=== PATIENT | female | born 1945 | race Caucasian/White ===

== ENCOUNTER 2021-06-26 07:30 | Inpatient (IN) | payer BC ==
[2021-06-26 08:43] LABS: BASO % 0.2 % (0-2.0); HEMATOCRIT 38.3 % (32.4-45.2); LYMPH % 37.5 % (8-40); MCH 27.6 pg (25.7-33.7); MCHC 33.8 g/dl (32.0-36.0); MEAN CELL VOLUME 81.8 fl (80-96); MEAN PLT VOLUME 7.8 fl (7.5-11.1); NEUT % 57.3 % (42.8-82.8); PLATELET COUNT 279 10^3/uL (134-434); RBC 4.69 M/mm3 (3.60-5.2); RDW 14.6 % (11.6-15.6)
[2021-06-26 09:02] LABS: INR 1.23 (0.83-1.09); PROTHROMBIN TIME (PATIENT) 14.2 SEC (9.7-13.0)
[2021-06-26 09:05] LABS: ACTIVATED PTT 27.6 SECONDS (25.2-36.5)
[2021-06-26 09:07] LABS: CHLORIDE 96 mmol/L (98-107); SODIUM 136 mmol/L (136-145)
[2021-06-26 09:09] LABS: CALCIUM 8.7 mg/dL (8.5-10.1); GLUCOSE,RANDOM 101 mg/dL (74-106)
[2021-06-26 09:10] LABS: ANION GAP 12 MMOL/L (8-16); BLOOD UREA NITROGEN 34.7 mg/dL (7-18); CO2 28 mmol/L (21-32)
[2021-06-26 09:13] LABS: CREATININE 0.8 mg/dL (0.55-1.3); SGOT/AST 34 U/L (15-37); SGPT/ALT 27 U/L (13-61)
[2021-06-26 09:15] LABS: BILIRUBIN,TOTAL 0.8 mg/dL (0.2-1); TOT PROT 7.1 g/dl (6.4-8.2)
[2021-06-26 09:16] LABS: ALK PHOS 73 U/L (45-117); N-TERMINAL BNP 54.3 pg/ml (5-125)
[2021-06-26] MEDS ORDERED: DEXAMETHASONE SOD PHOSPHATE 4 MG/1 ML VIAL IVPUSH ONE (11:11)
[2021-06-26] MEDS ORDERED: REMDESIVIR 200 MG in SODIUM CHLORIDE 250 ML IVPB ONE ×2 (11:11→15:12)
[2021-06-26] MEDS ORDERED: ACETAMINOPHEN 325 MG TABLET (FP) PO PRN (11:21)
[2021-06-26] MEDS ORDERED: ALBUTEROL SO4 HFA INHALER IH PRN (11:21)
[2021-06-26] MEDS ORDERED: POTASSIUM CHLORIDE TABS 20 MEQ TABLET.ER (FP) PO ONE ×2 (11:22→11:59)
[2021-06-26] MEDS ORDERED: SODIUM CHLORIDE 1,000 ML IV SCH (11:30)
[2021-06-26] MEDS ORDERED: DEXAMETHASONE SOD PHOSPHATE 10 MG/1 ML VIAL ONE (11:59)
[2021-06-26 12:11] LABS: MAGNESIUM 2.4 mg/dL (1.8-2.4)
[2021-06-26] MEDS: BUDESONIDE/FORMETEROL FUMARATE 160/4.5 mcg INHALER IH SCH (23:07)
[2021-06-26 23:57] VITALS: BMI 30.1
[2021-06-27] MEDS ORDERED: POTASSIUM CHLORIDE TABS 20 MEQ TABLET.ER (FP) PO ONE (07:49)
[2021-06-27 11:18] LABS: BASO % 0.3 % (0-2.0); HEMATOCRIT 38.3 % (32.4-45.2); HEMOGLOBIN 12.8 GM/dL (10.7-15.3); LYMPH % 32.3 % (8-40); MCH 27.3 pg (25.7-33.7); MCHC 33.3 g/dl (32.0-36.0); MEAN PLT VOLUME 8.6 fl (7.5-11.1); NEUT % 62.4 % (42.8-82.8); PLATELET COUNT 304 10^3/uL (134-434); RBC 4.67 M/mm3 (3.60-5.2); RDW 14.9 % (11.6-15.6); WHITE BLOOD COUNT 11.1 K/mm3 (4.0-10.0)
[2021-06-27] MEDS: DEXAMETHASONE SOD PHOSPHATE 4 MG/1 ML VIAL IVPUSH SCH (11:38)
[2021-06-27] MEDS: BUDESONIDE/FORMETEROL FUMARATE 160/4.5 mcg INHALER IH SCH ×2 (11:38→21:45)
[2021-06-27] MEDS: ENOXAPARIN NA (PORCINE) 40 MG/0.4 ML DISP.SYRIN SQ SCH (11:38)
[2021-06-27 11:57] LABS: ALBUMIN 2.8 g/dl (3.4-5.0); BLOOD UREA NITROGEN 25.8 mg/dL (7-18); CALCIUM 8.2 mg/dL (8.5-10.1); MAGNESIUM 2.4 mg/dL (1.8-2.4)
[2021-06-27 12:00] LABS: CREATININE 0.6 mg/dL (0.55-1.3); PHOSPHOROUS 2.3 mg/dL (2.5-4.9)
[2021-06-27] MEDS ORDERED: POTASSIUM CHLORIDE TABS 20 MEQ TABLET.ER (FP) PO SCH (12:00)
[2021-06-27 12:02] LABS: BILIRUBIN,TOTAL 0.8 mg/dL (0.2-1); TOT PROT 6.6 g/dl (6.4-8.2)
[2021-06-27] MEDS: REMDESIVIR 100 MG in SODIUM CHLORIDE 250 ML IVPB SCH (12:44)
[2021-06-27] MEDS: GABAPENTIN 300 MG CAPSULE PO SCH ×2 (14:09→21:44)
[2021-06-27] MEDS: POTASSIUM CHLORIDE ORAL LIQUID 20 MEQ/15 ML PO SCH ×2 (14:09→21:44)
[2021-06-27] MEDS: ALBUTEROL SO4 HFA INHALER IH SCH ×3 (14:10→21:44)
[2021-06-27] MEDS: ATORVASTATIN CA 40 MG TABLET (FP) PO SCH ×2 (21:44→22:00)
[2021-06-28] MEDS: GABAPENTIN 300 MG CAPSULE PO SCH ×3 (05:43→21:00)
[2021-06-28] MEDS: ALBUTEROL SO4 HFA INHALER IH SCH ×4 (08:00→21:00)
[2021-06-28 08:45] LABS: EPI CELLS 27 /uL (0-25.1); HYALINE CASTS 1 /uL (0-3.1); URINE APPEARANCE CLOUDY; URINE BACTERIA >9,000 /uL (0-1359); URINE BILIRUBIN NEGATIVE (NEGATIVE); URINE COLOR YELLOW; URINE GLUCOSE (UA) NEGATIVE (NEGATIVE); URINE KETONE TRACE (NEGATIVE); URINE LEUK ESTERASE TRACE (NEGATIVE); URINE NITRITE POSITIVE (NEGATIVE); URINE PROTEIN TRACE (NEGATIVE); URINE RBC 23 /uL (0-23.9); URINE WBC 35 /uL (0-25.8)
[2021-06-28 10:59] LABS: BASO % 0.1 % (0-2.0); HEMATOCRIT 37.9 % (32.4-45.2); HEMOGLOBIN 12.4 GM/dL (10.7-15.3); LYMPH % 21.5 % (8-40); MCH 27.3 pg (25.7-33.7); MCHC 32.6 g/dl (32.0-36.0); MEAN CELL VOLUME 83.6 fl (80-96); MEAN PLT VOLUME 8.6 fl (7.5-11.1); MONO % 3.9 % (3.8-10.2); NEUT % 74.5 % (42.8-82.8); PLATELET COUNT 336 10^3/uL (134-434); RBC 4.53 M/mm3 (3.60-5.2); RDW 14.7 % (11.6-15.6); WHITE BLOOD COUNT 13.5 K/mm3 (4.0-10.0)
[2021-06-28 11:37] LABS: ALBUMIN 2.7 g/dl (3.4-5.0); BLOOD UREA NITROGEN 22.8 mg/dL (7-18); CALCIUM 8.2 mg/dL (8.5-10.1); MAGNESIUM 2.3 mg/dL (1.8-2.4)
[2021-06-28 11:40] LABS: CREATININE 0.6 mg/dL (0.55-1.3)
[2021-06-28 11:41] LABS: BILIRUBIN,TOTAL 0.7 mg/dL (0.2-1)
[2021-06-28 11:42] LABS: TOT PROT 6.2 g/dl (6.4-8.2)
[2021-06-28] MEDS ORDERED: DEXAMETHASONE SOD PHOSPHATE 20 MG/5 ML VIAL IVPB ONE (12:15)
[2021-06-28] MEDS: amLODIPine BESYLATE 5 MG TABLET (FP) PO SCH (12:41)
[2021-06-28] MEDS: BUDESONIDE/FORMETEROL FUMARATE 160/4.5 mcg INHALER IH SCH ×2 (12:42→21:00)
[2021-06-28] MEDS: REMDESIVIR 100 MG in SODIUM CHLORIDE 250 ML IVPB SCH (12:42)
[2021-06-28] MEDS: DEXAMETHASONE SOD PHOSPHATE 4 MG/1 ML VIAL IVPUSH SCH (12:42)
[2021-06-28] MEDS: ENOXAPARIN NA (PORCINE) 40 MG/0.4 ML DISP.SYRIN SQ SCH (14:00)
[2021-06-28] MEDS ORDERED: PRAMOXINE HCL/MINERAL OIL/ZNOX 30 GM TUBE RC PRN (14:05)
[2021-06-28] MEDS: WITCH HAZEL 50% (TUCKS) 40 PAD/JAR PAD TP PRN (14:29)
[2021-06-28] MEDS: LOPERAMIDE HCL 2 MG CAPSULE PO PRN (16:34)
[2021-06-28] MEDS: ATORVASTATIN CA 40 MG TABLET (FP) PO SCH (21:00)
[2021-06-29] MEDS: GABAPENTIN 300 MG CAPSULE PO SCH ×3 (05:27→22:15)
[2021-06-29] MEDS: ALBUTEROL SO4 HFA INHALER IH SCH ×4 (08:07→20:41)
[2021-06-29] MEDS: DEXAMETHASONE SOD PHOSPHATE 10 MG/1 ML VIAL IVPUSH SCH (09:56)
[2021-06-29] MEDS: ENOXAPARIN NA (PORCINE) 40 MG/0.4 ML DISP.SYRIN SQ SCH (09:56)
[2021-06-29] MEDS: BUDESONIDE/FORMETEROL FUMARATE 160/4.5 mcg INHALER IH SCH ×2 (09:56→22:18)
[2021-06-29] MEDS: amLODIPine BESYLATE 5 MG TABLET (FP) PO SCH (09:56)
[2021-06-29 10:09] LABS: BASO % 0.4 % (0-2.0); EOS % 0.2 % (0-4.5); HEMOGLOBIN 12.2 GM/dL (10.7-15.3); MCH 27.3 pg (25.7-33.7); MCHC 32.9 g/dl (32.0-36.0); MEAN CELL VOLUME 82.9 fl (80-96); MONO % 4.3 % (3.8-10.2); NEUT % 66.1 % (42.8-82.8); PLATELET COUNT 298 10^3/uL (134-434); RBC 4.47 M/mm3 (3.60-5.2); RDW 14.5 % (11.6-15.6); WHITE BLOOD COUNT 7.5 K/mm3 (4.0-10.0)
[2021-06-29 11:28] LABS: BLOOD UREA NITROGEN 17.8 mg/dL (7-18); CALCIUM 8.4 mg/dL (8.5-10.1)
[2021-06-29 11:29] LABS: ALBUMIN 2.8 g/dl (3.4-5.0); MAGNESIUM 2.2 mg/dL (1.8-2.4)
[2021-06-29 11:32] LABS: CREATININE 0.5 mg/dL (0.55-1.3)
[2021-06-29 11:33] LABS: BILIRUBIN,TOTAL 0.5 mg/dL (0.2-1); TOT PROT 6.1 g/dl (6.4-8.2)
[2021-06-29] MEDS: WITCH HAZEL 50% (TUCKS) 40 PAD/JAR PAD TP PRN (11:56)
[2021-06-29] MEDS: REMDESIVIR 100 MG in SODIUM CHLORIDE 250 ML IVPB SCH (11:56)
[2021-06-29] MEDS: PANTOPRAZOLE 40 MG TABLET PO SCH (12:29)
[2021-06-29] MEDS: LOPERAMIDE HCL 2 MG CAPSULE PO PRN (12:46)
[2021-06-29] MEDS: ATORVASTATIN CA 40 MG TABLET (FP) PO SCH (22:15)
[2021-06-30] MEDS: GABAPENTIN 300 MG CAPSULE PO SCH ×3 (05:59→22:11)
[2021-06-30] MEDS: ALBUTEROL SO4 HFA INHALER IH SCH ×4 (08:37→22:11)
[2021-06-30] MEDS: PANTOPRAZOLE 40 MG TABLET PO SCH (10:02)
[2021-06-30] MEDS: ENOXAPARIN NA (PORCINE) 40 MG/0.4 ML DISP.SYRIN SQ SCH (10:02)
[2021-06-30] MEDS: amLODIPine BESYLATE 5 MG TABLET (FP) PO SCH (10:02)
[2021-06-30] MEDS: DEXAMETHASONE SOD PHOSPHATE 10 MG/1 ML VIAL IVPUSH SCH (10:02)
[2021-06-30] MEDS: BUDESONIDE/FORMETEROL FUMARATE 160/4.5 mcg INHALER IH SCH ×2 (10:20→22:11)
[2021-06-30] MEDS ORDERED: DEXTROSE 5%-WATER 100 ML IVPB ONE (11:21)
[2021-06-30] MEDS: CEFTRIAXONE 2 GM in DEXTROSE 5%-WATER 100 ML IVPB SCH (11:52)
[2021-06-30 12:28] LABS: BASO % 0.2 % (0-2.0); HEMATOCRIT 34.4 % (32.4-45.2); HEMOGLOBIN 11.4 GM/dL (10.7-15.3); LYMPH % 24.7 % (8-40); MCH 27.5 pg (25.7-33.7); MCHC 33.3 g/dl (32.0-36.0); MEAN CELL VOLUME 82.5 fl (80-96); MEAN PLT VOLUME 8.7 fl (7.5-11.1); MONO % 6.2 % (3.8-10.2); NEUT % 68.9 % (42.8-82.8); PLATELET COUNT 301 10^3/uL (134-434); RBC 4.16 M/mm3 (3.60-5.2); RDW 14.1 % (11.6-15.6); WHITE BLOOD COUNT 9.9 K/mm3 (4.0-10.0)
[2021-06-30] MEDS: REMDESIVIR 100 MG in SODIUM CHLORIDE 250 ML IVPB SCH (12:35)
[2021-06-30 12:59] LABS: CALCIUM 8.4 mg/dL (8.5-10.1)
[2021-06-30 13:00] LABS: ALBUMIN 2.7 g/dl (3.4-5.0); BLOOD UREA NITROGEN 16.6 mg/dL (7-18); MAGNESIUM 2.2 mg/dL (1.8-2.4)
[2021-06-30 13:03] LABS: CREATININE 0.4 mg/dL (0.55-1.3)
[2021-06-30 13:05] LABS: BILIRUBIN,TOTAL 0.5 mg/dL (0.2-1); TOT PROT 5.8 g/dl (6.4-8.2)
[2021-06-30] MEDS: ATORVASTATIN CA 40 MG TABLET (FP) PO SCH (22:16)
[2021-07-01] MEDS: GABAPENTIN 300 MG CAPSULE PO SCH (05:48)
[2021-07-01] MEDS ORDERED: DEXTROSE 5%-WATER 100 ML IVPB ONE (09:25)
[2021-07-01] MEDS ORDERED: APIXABAN 5 MG TABLET PO SCH (10:00)
[2021-07-01] MEDS: amLODIPine BESYLATE 5 MG TABLET (FP) PO SCH (10:48)
[2021-07-01] MEDS: DEXAMETHASONE SOD PHOSPHATE 10 MG/1 ML VIAL IVPUSH SCH (10:48)
[2021-07-01] MEDS: PANTOPRAZOLE 40 MG TABLET PO SCH (10:48)
[2021-07-01] MEDS: CEFTRIAXONE 2 GM in DEXTROSE 5%-WATER 100 ML IVPB SCH (10:48)
[2021-07-01 11:42] VITALS: BP 141/64; PULSE 82; TEMP 98.8
[2021-07-01] MEDS ORDERED: DEXAMETHASONE 4 MG TABLET (FP) PO ONE (11:52)
[2021-07-01] MEDS ORDERED: CEFUROXIME AXETIL 500 MG TABLET PO SCH (12:00)
[2021-07-01] MEDS: BUDESONIDE/FORMETEROL FUMARATE 160/4.5 mcg INHALER IH SCH (12:22)
[2021-07-01] MEDS: ALBUTEROL SO4 HFA INHALER IH SCH (12:22)
[2021-07-01] MEDS ORDERED: DEXAMETHASONE 4 MG TABLET (FP) PO SCH (12:45)
[2021-07-02] MEDS ORDERED: DEXAMETHASONE 4 MG TABLET (FP) PO SCH (10:00)
== END 2021-07-01 14:55 | disposition home or self-care (01) | DRG 177 ==
LOC: JER 07:30 → JERBED 08:08 → J5S 21:13
PROVIDERS: ADMIT Internal Medicine; ATTEND Nurse Practitioner Family
PROC: 3E0333Z Introduction of Anti-inflammatory into Peripheral Vein, Percutaneous Approach (ICD-10-PCS; principal; 2021-06-26)
PROC: XW033E5 Introduction of Remdesivir Anti-infective into Peripheral Vein, Percutaneous Approach, New Technology Group 5 (ICD-10-PCS; 2021-06-26)
DX: U07.1 COVID-19 (principal); J12.82 Pneumonia due to coronavirus disease 2019; J96.01 Acute respiratory failure with hypoxia; I10 Essential (primary) hypertension; M79.7 Fibromyalgia; E78.5 Hyperlipidemia, unspecified; M19.90 Unspecified osteoarthritis, unspecified site; E87.6 Hypokalemia; R19.7 Diarrhea, unspecified; R50.9 Fever, unspecified; Z28.9 Immunization not carried out for unspecified reason
CPT/HCPCS: 36415; 71045-TC-FY; 80053; 81003; 82728; 83605; 83615; 83735; 83880; 84100; 84484; 85025; 85379; 85610; 85730; 86140; 87040; 87086; 87186; 87804; 93005; 93010; 94761; 97116-GP; 97162-GP; 99285-25; C9399; C9803; J1100; U0003; U0005

== ENCOUNTER 2021-07-13 12:15 | Emergency (ER) | payer BC ==
[2021-07-13 12:34] VITALS: TEMP 98.7; BMI 30.8
[2021-07-13 13:31] LABS: BASO % 0.6 % (0-2.0); EOS % 0.1 % (0-4.5); HEMOGLOBIN 12.4 GM/dL (10.7-15.3); LYMPH % 35.9 % (8-40); MCH 27.4 pg (25.7-33.7); MCHC 33.4 g/dl (32.0-36.0); MEAN CELL VOLUME 82.1 fl (80-96); MEAN PLT VOLUME 6.6 fl (7.5-11.1); MONO % 2.9 % (3.8-10.2); NEUT % 60.5 % (42.8-82.8); PLATELET COUNT 184 10^3/uL (134-434); RDW 15.7 % (11.6-15.6); WHITE BLOOD COUNT 12.6 K/mm3 (4.0-10.0)
[2021-07-13 13:49] LABS: CHLORIDE 106 mmol/L (98-107); SODIUM 134 mmol/L (136-145)
[2021-07-13 13:51] LABS: CALCIUM 9.1 mg/dL (8.5-10.1)
[2021-07-13 13:52] LABS: ALBUMIN 2.8 g/dl (3.4-5.0); BLOOD UREA NITROGEN 13.3 mg/dL (7-18); CO2 21 mmol/L (21-32); GLUCOSE,RANDOM 95 mg/dL (74-106)
[2021-07-13 13:55] LABS: CREATININE 0.7 mg/dL (0.55-1.3)
[2021-07-13 13:57] LABS: TOT PROT 7.5 g/dl (6.4-8.2)
[2021-07-13 13:58] LABS: BILIRUBIN,TOTAL 1.2 mg/dL (0.2-1)
[2021-07-13 13:59] LABS: N-TERMINAL BNP 324.8 pg/ml (5-125)
[2021-07-13 14:27] LABS: ALK PHOS 80 U/L (45-117); ANION GAP 7 MMOL/L (8-16); MAGNESIUM 2.1 mg/dL (1.8-2.4); SGOT/AST 76 U/L (15-37); SGPT/ALT 20 U/L (13-61)
[2021-07-13 14:42] VITALS: BP 148/83
[2021-07-13 15:15] LABS: INR 1.04 (0.83-1.09)
[2021-07-13 15:18] LABS: ACTIVATED PTT 30.8 SECONDS (25.2-36.5)
[2021-07-13 15:59] VITALS: PULSE 93
== END 2021-07-13 16:10 | disposition home or self-care (01) ==
LOC: JER 12:15
DX: R06.02 Shortness of breath (principal)
CPT/HCPCS: 36415; 71046-TC-FY; 71275-TC; 80053; 83735; 83880; 84132; 84443; 84484; 85025; 85610; 85730; 93005; 93010; 99285-25; C9803; Q9967; U0003; U0005

== ENCOUNTER 2023-06-14 09:04 | Inpatient (IN) | payer BC, OTHER ==
[2023-06-14] MEDS ORDERED: ACETAMINOPHEN 1000 MG/100 ML BAG IVPB ONE (10:10)
[2023-06-14] MEDS ORDERED: LACTATED RINGERS SOLUTION 1000 ML INFUS.BAG IV ONE (10:10)
[2023-06-14 10:12] VITALS: BMI 28.3
[2023-06-14] MEDS ORDERED: ACETAMINOPHEN INJECTION 100 ML IVPB ONE (10:51)
[2023-06-14 10:57] LABS: HEMOGLOBIN 12.7 GM/dL (10.7-15.3); MCH 27.3 pg (25.7-33.7); MCHC 32.4 g/dl (32.0-36.0); MEAN CELL VOLUME 84.2 fl (80-96); MEAN PLT VOLUME 7.4 fl (7.5-11.1); PLATELET COUNT 321 10^3/uL (134-434); RBC 4.63 M/mm3 (3.60-5.2); RDW 15.8 % (11.6-15.6); WHITE BLOOD COUNT 22.7 K/mm3 (4.0-10.0)
[2023-06-14 11:01] LABS: INR 1.14 (0.83-1.09); PROTHROMBIN TIME (PATIENT) 13.2 SEC (9.7-13.0)
[2023-06-14 11:18] LABS: POTASSIUM 3.6 mmol/L (3.5-5.1)
[2023-06-14 11:21] LABS: ALBUMIN 3.1 g/dl (3.4-5.0); CALCIUM 9.2 mg/dL (8.5-10.1); MAGNESIUM 1.9 mg/dL (1.8-2.4)
[2023-06-14 11:24] LABS: CREATININE 1.1 mg/dL (0.55-1.3)
[2023-06-14 11:26] LABS: BILIRUBIN,TOTAL 0.7 mg/dL (0.2-1); TOT PROT 6.5 g/dl (6.4-8.2)
[2023-06-14 11:27] LABS: BLOOD UREA NITROGEN 26.3 mg/dL (7-18)
[2023-06-14 11:52] LABS: ANISOCYTOSIS 0; HELMET CELLS 0; HOWELL-JOLLY BODIES 0; MACROCYTOSIS 0; OVALOCYTE 0; ROULEAU 0; SICKELED CELLS 0; TARGET CELLS 0; TEAR DROP CELLS 0; TOXIC GRANULATION 0
[2023-06-14] MEDS ORDERED: traMADol HCL 50 MG TABLET PO PRN (15:38)
[2023-06-14] MEDS ORDERED: ACETAMINOPHEN 500 MG TABLET (FP) PO PRN (15:50)
[2023-06-14] MEDS ORDERED: LACTATED RINGERS SOLUTION 1,000 ML/1,000 ML INFUS.BAG IV SCH (16:00)
[2023-06-14 20:02] LABS: EPI CELLS 21 /uL (0-25.1); HYALINE CASTS 5 /uL (0-3.1); PH,URINE 6.5 (5.0-8.0); URINE APPEARANCE CLEAR; URINE BACTERIA >9,000 /uL (0-1359); URINE BILIRUBIN NEGATIVE (NEGATIVE); URINE COLOR YELLOW; URINE GLUCOSE (UA) NEGATIVE (NEGATIVE); URINE KETONE NEGATIVE (NEGATIVE); URINE LEUK ESTERASE TRACE (NEGATIVE); URINE NITRITE POSITIVE (NEGATIVE); URINE PROTEIN 1+ (NEGATIVE); URINE RBC 319 /uL (0-23.9); URINE UROBILINOGEN 0.2 mg/dL (0.2-1.0); URINE WBC 707 /uL (0-25.8)
[2023-06-14] MEDS ORDERED: HEPARIN NA (PORCINE) 5,000 UNITS/ML 1ML VIAL ONE (22:28)
[2023-06-14] MEDS: HEPARIN NA (PORCINE) 5,000 UNITS/ML 1ML VIAL SQ SCH (22:34)
[2023-06-14] MEDS: ATORVASTATIN CA 40 MG TABLET (FP) PO SCH (23:54)
[2023-06-14] MEDS: GABAPENTIN 300 MG CAPSULE PO SCH (23:54)
[2023-06-15] MEDS: GABAPENTIN 300 MG CAPSULE PO SCH ×3 (06:25→21:48)
[2023-06-15 09:16] LABS: HEMATOCRIT 34.9 % (32.4-45.2); HEMOGLOBIN 11.8 GM/dL (10.7-15.3); MCH 28.1 pg (25.7-33.7); MCHC 33.9 g/dl (32.0-36.0); MEAN CELL VOLUME 82.9 fl (80-96); PLATELET COUNT 260 10^3/uL (134-434); RDW 15.9 % (11.6-15.6); WHITE BLOOD COUNT 20.1 K/mm3 (4.0-10.0)
[2023-06-15] MEDS: amLODIPine BESYLATE 5 MG TABLET (FP) PO SCH (09:47)
[2023-06-15] MEDS: LISINOPRIL 10 MG TABLET PO SCH (09:47)
[2023-06-15] MEDS: HEPARIN NA (PORCINE) 5,000 UNITS/ML 1ML VIAL SQ SCH ×2 (09:48→21:48)
[2023-06-15 09:49] LABS: POTASSIUM 3.1 mmol/L (3.5-5.1)
[2023-06-15 10:04] LABS: BLOOD UREA NITROGEN 18.7 mg/dL (7-18); CALCIUM 8.8 mg/dL (8.5-10.1)
[2023-06-15 10:08] LABS: CREATININE 0.9 mg/dL (0.55-1.3)
[2023-06-15 10:23] LABS: ANISOCYTOSIS 2+; MACROCYTOSIS 0
[2023-06-15] MEDS ORDERED: POTASSIUM CHLORIDE ORAL LIQUID 20 MEQ/15 ML PO ONE (11:00)
[2023-06-15] MEDS: VILAZODONE HYDROCHLORIDE 20 MG TABLET PO SCH (11:49)
[2023-06-15] MEDS ORDERED: LACTATED RINGERS SOLUTION 1,000 ML/1,000 ML INFUS.BAG IV SCH (12:45)
[2023-06-15] MEDS: KCL 10 MEQ IVPB 10 MEQ/100 ML INFUS.BAG IVPB SCH ×2 (13:41→15:39)
[2023-06-15 13:51] LABS: POTASSIUM 3.3 mmol/L (3.5-5.1)
[2023-06-15 13:52] LABS: CALCIUM 8.8 mg/dL (8.5-10.1)
[2023-06-15 13:53] LABS: BLOOD UREA NITROGEN 17.3 mg/dL (7-18); MAGNESIUM 1.7 mg/dL (1.8-2.4)
[2023-06-15 13:57] LABS: CREATININE 0.9 mg/dL (0.55-1.3)
[2023-06-15] MEDS: ATORVASTATIN CA 40 MG TABLET (FP) PO SCH ×2 (21:48→22:02)
[2023-06-15] MEDS: traZODone HCL 50 MG TABLET (FP) PO SCH (21:48)
[2023-06-16] MEDS: GABAPENTIN 300 MG CAPSULE PO SCH ×3 (05:56→22:16)
[2023-06-16 09:00] LABS: BASO % 0.6 % (0-2.0); EOS % 0.4 % (0-4.5); HEMATOCRIT 33.8 % (32.4-45.2); HEMOGLOBIN 11.2 GM/dL (10.7-15.3); LYMPH % 39.3 % (8-40); MCH 28.2 pg (25.7-33.7); MCHC 33.2 g/dl (32.0-36.0); MEAN CELL VOLUME 84.9 fl (80-96); MEAN PLT VOLUME 7.6 fl (7.5-11.1); MONO % 3.7 % (3.8-10.2); PLATELET COUNT 263 10^3/uL (134-434); RBC 3.98 M/mm3 (3.60-5.2); RDW 15.7 % (11.6-15.6); WHITE BLOOD COUNT 13.4 K/mm3 (4.0-10.0)
[2023-06-16 09:09] LABS: POTASSIUM 3.2 mmol/L (3.5-5.1)
[2023-06-16 09:16] LABS: ALBUMIN 2.6 g/dl (3.4-5.0); CALCIUM 8.9 mg/dL (8.5-10.1)
[2023-06-16] MEDS: amLODIPine BESYLATE 5 MG TABLET (FP) PO SCH (09:16)
[2023-06-16] MEDS: LISINOPRIL 10 MG TABLET PO SCH (09:16)
[2023-06-16] MEDS: HEPARIN NA (PORCINE) 5,000 UNITS/ML 1ML VIAL SQ SCH ×2 (09:16→22:17)
[2023-06-16 09:17] LABS: MAGNESIUM 1.8 mg/dL (1.8-2.4)
[2023-06-16 09:20] LABS: CREATININE 0.8 mg/dL (0.55-1.3)
[2023-06-16 09:21] LABS: BILIRUBIN,TOTAL 0.5 mg/dL (0.2-1)
[2023-06-16 09:22] LABS: TOT PROT 5.6 g/dl (6.4-8.2)
[2023-06-16] MEDS ORDERED: MAGNESIUM 1GM/D5W - 1 GM/100 ML IVPB IVPB ONE (10:45)
[2023-06-16] MEDS ORDERED: POTASSIUM CHLORIDE TABS 20 MEQ TABLET.ER (FP) PO ONE ×2 (10:48→15:00)
[2023-06-16] MEDS: VILAZODONE HYDROCHLORIDE 20 MG TABLET PO SCH (11:55)
[2023-06-16] MEDS: CIPROFLOXACIN 500 MG TABLET (RESTRICTED TO ID) PO SCH (17:54)
[2023-06-16] MEDS ORDERED: CIPROFLOXACIN 500 MG TABLET (RESTRICTED TO ID) PO SCH ×2 (18:00→22:00)
[2023-06-16 18:20] VITALS: RESP 18
[2023-06-16] MEDS: traZODone HCL 50 MG TABLET (FP) PO SCH (22:16)
[2023-06-16] MEDS: metroNIDAZOLE 250 MG TABLET PO SCH (22:16)
[2023-06-16] MEDS: ATORVASTATIN CA 40 MG TABLET (FP) PO SCH ×2 (22:16→22:23)
[2023-06-17] MEDS: metroNIDAZOLE 250 MG TABLET PO SCH (05:48)
[2023-06-17] MEDS: GABAPENTIN 300 MG CAPSULE PO SCH (05:48)
[2023-06-17] MEDS: CIPROFLOXACIN 500 MG TABLET (RESTRICTED TO ID) PO SCH (05:48)
[2023-06-17 09:08] VITALS: BP 94/55; PULSE 83; TEMP 97.8
[2023-06-17] MEDS: amLODIPine BESYLATE 5 MG TABLET (FP) PO SCH (09:13)
[2023-06-17] MEDS: LISINOPRIL 10 MG TABLET PO SCH (09:14)
[2023-06-17 09:30] LABS: BASO % 0.4 % (0-2.0); EOS % 0.7 % (0-4.5); HEMATOCRIT 31.4 % (32.4-45.2); HEMOGLOBIN 10.4 GM/dL (10.7-15.3); LYMPH % 41.3 % (8-40); MCH 28.4 pg (25.7-33.7); MCHC 33.2 g/dl (32.0-36.0); MEAN CELL VOLUME 85.5 fl (80-96); MEAN PLT VOLUME 8.3 fl (7.5-11.1); MONO % 4.6 % (3.8-10.2); PLATELET COUNT 233 10^3/uL (134-434); RBC 3.67 M/mm3 (3.60-5.2); RDW 16.2 % (11.6-15.6)
[2023-06-17] MEDS ORDERED: PANTOPRAZOLE 40 MG TABLET PO SCH (10:00)
[2023-06-17 10:05] LABS: ALBUMIN 2.4 g/dl (3.4-5.0); BILIRUBIN,TOTAL 0.3 mg/dL (0.2-1); BLOOD UREA NITROGEN 13.2 mg/dL (7-18); CALCIUM 8.4 mg/dL (8.5-10.1); CREATININE 0.8 mg/dL (0.55-1.3); MAGNESIUM 1.9 mg/dL (1.8-2.4); POTASSIUM 4.1 mmol/L (3.5-5.1); TOT PROT 5.3 g/dl (6.4-8.2)
[2023-06-17] MEDS: VILAZODONE HYDROCHLORIDE 20 MG TABLET PO SCH (11:29)
== END 2023-06-17 11:56 | disposition home health service (06) | DRG 378 ==
LOC: JER 09:04 → JERBED 16:09 → OBSVTOIN 16:09 → J7W 23:36
PROVIDERS: ADMIT Internal Medicine; ATTEND Nurse Practitioner Acute Care
DX: K62.5 Hemorrhage of anus and rectum (principal); N39.0 Urinary tract infection, site not specified; K52.9 Noninfective gastroenteritis and colitis, unspecified; R11.2 Nausea with vomiting, unspecified; M79.7 Fibromyalgia; I10 Essential (primary) hypertension; J06.9 Acute upper respiratory infection, unspecified; E86.0 Dehydration; F43.10 Post-traumatic stress disorder, unspecified; E78.5 Hyperlipidemia, unspecified; E87.6 Hypokalemia
CPT/HCPCS: 0241U-QW; 36415; 74177-TC; 80048; 80053; 81003; 82272; 83605; 83690; 83735; 85025; 85610; 86850; 86900; 86901; 87045; 87046; 87086; 99285-25; J1644; Q9967